=== PATIENT | male | born 1960 | race Caucasian/White ===

== ENCOUNTER 2023-08-05 11:36 | Emergency (ER) | payer BC ==
[2023-08-05 11:54] LABS: BASOPHILS ABSOLUTE AUTO 0.05 K/uL (0.00-0.20); BASOPHILS PERCENT AUTO 0.8 % (0.0-2.0); EOSINOPHILS ABSOLUTE AUTO 0.02 K/uL (0.00-0.50); EOSINOPHILS PERCENT AUTO 0.3 % (0.0-5.0); HEMATOCRIT 50.3 % (39.0-49.0); HEMOGLOBIN 16.7 g/dL (13.1-16.8); LYMPHOCYTES ABSOLUTE AUTO 1.25 K/uL (0.50-3.50); MEAN CORPUSCULAR HEMOGLOBIN 33.1 pg (28.2-33.3); MEAN CORPUSCULAR HGB CONC 33.2 g/dL (31.7-36.0); MEAN CORPUSCULAR VOLUME 99.6 fL (84.0-98.0); MONOCYTES ABSOLUTE AUTO 0.42 K/uL (0.00-1.00); MONOCYTES PERCENT AUTO 6.4 % (2.0-14.0); NEUTROPHILS ABSOLUTE AUTO 4.84 K/uL (1.40-7.00); NEUTROPHILS PERCENT AUTO 73.5 % (45.0-80.0); PLATELET COUNT,PLT 114 K/uL (150-350); RED BLOOD CELL COUNT 5.05 M/uL (4.33-5.41); RED CELL DISTRIBUTION WIDTH 13.5 % (11.2-14.1); WHITE BLOOD CELL COUNT,WBC 6.6 K/uL (4.0-10.2)
[2023-08-05 12:17] LABS: LACTIC ACID 5.8 mmol/L (0.4-2.0)
[2023-08-05 12:26] LABS: ALBUMIN 3.6 g/dL (3.4-5.0); ANION GAP 17.8 meq/L (7-15); BILIRUBIN TOTAL 0.9 mg/dL (0.2-1.0); CALCIUM 8.5 mg/dL (8.5-10.1); CARBON DIOXIDE,CO2 22.2 mmol/L (21.0-32.0); CREATININE 1.29 mg/dL (0.51-1.17); EST CRCL DRUG DOSING (CG) 59.73 mL/min; ETHANOL BLOOD MEDICAL 0.357 g/dL (0.000-0.080); POTASSIUM,K 4.1 mmol/L (3.5-5.1); PROTEIN TOTAL,TP 7.3 g/dL (6.4-8.2)
[2023-08-05] MEDS ORDERED: LORazepam 1 MG Tab PO ONE (12:40)
[2023-08-05] MEDS: Sodium Chloride 0.9% 1,000 ML IV ONE ×2 (12:44→13:51)
[2023-08-05] MEDS: Thiamine 100 MG in Sodium Chloride 0.9% 100 ML IV ONE (15:35)
[2023-08-05 15:49] LABS: AMPHETAMINES SCREEN, URINE NEGATIVE (NEGATIVE); BARBITURATE SCREEN,URINE NEGATIVE (NEGATIVE); BENZODIAZEPINES SCREEN,URINE NEGATIVE (NEGATIVE); COCAINE METABOLITES,URINE NEGATIVE (NEGATIVE); EDDP,URINE SCREEN NEGATIVE (NEGATIVE); METHAMPHETAMINES SCREEN, URINE NEGATIVE (NEGATIVE); TCA SCREEN,URINE NEGATIVE (NEGATIVE); THC SCREEN,URINE 50 NG/ML NEGATIVE (NEGATIVE)
[2023-08-05 15:56] LABS: BUPRENORPHINE SCREEN,URINE NEGATIVE (NEGATIVE); OXYCODONE SCREEN,URINE NEGATIVE (NEGATIVE)
[2023-08-05] MEDS: LORazepam 1 MG Tab PO ONE (18:33)
== END 2023-08-05 18:40 | disposition home or self-care (01) ==
LOC: LL.ED 11:36
DX: F10.220 Alcohol dependence with intoxication, uncomplicated (principal); I10 Essential (primary) hypertension; E78.00 Pure hypercholesterolemia, unspecified; F17.210 Nicotine dependence, cigarettes, uncomplicated; E66.9 Obesity, unspecified; Z79.82 Long term (current) use of aspirin; Z79.899 Other long term (current) drug therapy; Z88.8 Allergy status to other drugs, medicaments and biological substances; Z68.30 Body mass index [BMI] 30.0-30.9, adult
CPT/HCPCS: 36415; 80053; 80305-QW; 80307; 83605; 83880; 84484; 85025; 93005; 93010; 96361; 96365; 99284; 99284-25; A9270-GY; J3411; J3490; J7030